=== PATIENT | female | born 1945 | race Caucasian/White ===

== ENCOUNTER 2017-05-02 13:36 | Outpatient (CLI) | payer MEDICARE, OTHER ==
--- NOTE | 2017-05-02 14:13 | RAD ---
3 VIEWS RIGHT KNEE: Date: 05/02/17 CLINICAL HISTORY: Osteoarthritis. Pain. FINDINGS: There is mild joint capsular distention. Mild osteoarthritis is present with tricompartmental osteoph ytosis and joint compartment narrowing. No fracture. Interarticular body is seen at the posterior asp ect of the knee joint. IMPRESSION: 1. Mild osteoarthritis. 2. Intraarticular body. POS: [facility]
== END 2017-05-02 13:37 | disposition home or self-care (01) ==
LOC: SCSRAD 13:36
PROVIDERS: ATTEND Family Medicine
DX: M17.11 Unilateral primary osteoarthritis, right knee (principal)